=== PATIENT | female | born 1965 | race African-American/Black ===

== ENCOUNTER 2020-05-23 07:40 | Emergency (ER) | payer OTHER ==
[~2020-05-23] VITALS: Ht 154.9 cm; Wt 93.0 kg
[2020-05-23] MEDS ORDERED: PROAIR HFA8.5 GM INH (07:59)
[2020-05-23] MEDS ORDERED: GLUCOPHAGE XR750 MG PO (07:59)
[2020-05-23] MEDS ORDERED: ALPRAZOLAM XR2 MG PO (07:59)
[2020-05-23] MEDS ORDERED: TIROSINT150 MCG PO (07:59)
[2020-05-23] MEDS ORDERED: SINGULAIR4 MG PO (07:59)
[2020-05-23] MEDS ORDERED: AMITRIPTYLINE H10 M1 PO (08:00)
[2020-05-23] MEDS ORDERED: MIRTAZAPINE7.5 MG PO (08:00)
[2020-05-23] MEDS ORDERED: ZPAK PO (08:53)
[2020-05-23] MEDS ORDERED: GUAIFEN-CODEINE10 ML PO (08:53)
[2020-05-23 09:13] VITALS: BP 142/98
[2020-05-23] MEDS ORDERED: ZOFRAN ODT4 MG PO (09:14)
== END 2020-05-23 09:13 | disposition home or self-care (01) ==
LOC: ER 07:40
DX: J06.9 Acute upper respiratory infection, unspecified (principal); J44.9 Chronic obstructive pulmonary disease, unspecified; E11.9 Type 2 diabetes mellitus without complications; Z90.89 Acquired absence of other organs; Z79.899 Other long term (current) drug therapy; Z20.828 Contact with and (suspected) exposure to other viral communicable diseases